=== PATIENT | male | born 1955 | race Caucasian/White ===

== ENCOUNTER → 2018-04-09 14:11 | Outpatient (CLI) | payer SELFPAY | END | disposition home or self-care (01) | LOC: D.LABREF 14:11 | DX: M17.12 Unilateral primary osteoarthritis, left knee (principal); Z11.8 Encounter for screening for other infectious and parasitic diseases ==

== ENCOUNTER 2018-04-15 11:22 | Inpatient (IN) | payer OTHER ==
[~2018-04-15] VITALS: Ht 180.3 cm; Wt 106.4 kg
[2018-04-23] MEDS ORDERED: MOTRIN600 MG PO (16:34)
[2018-04-23] MEDS ORDERED: TYLENOL #4 W/CO1 TAB PO (16:35)
[2018-04-23] MEDS ORDERED: DIOVAN160 MG PO (16:35)
[2018-04-23] MEDS ORDERED: LIPITOR20 MG PO (16:36)
[2018-04-23] MEDS ORDERED: BAYER CHEWABLE81 MG PO (16:36)
[2018-04-23] MEDS ORDERED: OSTEO BI-FLEX1 EAC1 PO (16:47)
[2018-04-24] MEDS ORDERED: TIROSINT50 MCG PO (10:50)
[2018-04-24 11:53] LABS: BASOPHILS 0.2 % (0-2); EOSINOPHILS 1.5 % (0-7); HEMATOCRIT 43.4 % (42.0-54.0); HEMOGLOBIN 14.6 g/dL (13.5-17.5); IMMATURE GRANULOCYTES 1.2 % (0-5); LYMPHOCYTES 21.9 % (15-50); MCH 31.5 pg (26.0-34.0); MCHC 33.6 g/dL (31.0-37.0); MCV 93.7 fL (80.0-100.0); MEAN PLATELET VOLUME 10.5 fL (7.4-10.4); NEUTROPHILS 68.2 % (40-80); PLATELET COUNT 161 10x3/uL (130-400); RBC 4.63 10x6/uL (4.20-6.10); RDW 13.3 % (11.5-14.5); WBC 8.3 10x3/uL (4.8-10.8)
[2018-04-24 12:00] LABS: CALC OSMOLALITY 280 mosm/kg (275-300); CALCIUM 8.9 mg/dL (8.5-10.1); CHLORIDE - SERUM 103 mmol/L (98-107); CREATININE - SERUM 0.7 mg/dL (0.6-1.3); GLUCOSE 111 mg/dL (74-106); POTASSIUM - SERUM 4.2 mmol/L (3.5-5.1); SODIUM 140 mmol/L (136-145); UREA NITROGEN 16 mg/dL (7-18); eGFR NON AFRICAN AMERICAN > 90 mL/min (90-120)
[2018-04-24 12:05] LABS: APTT 26.7 SECONDS (22.8-39.4); INR 0.96 (0.85-1.17); PROTIME 12.3 SECONDS (11.6-15.0)
[2018-04-24 12:22] LABS: APPEARANCE HAZY (CLEAR); BILIRUBIN NEGATIVE (NEGATIVE); COLOR YELLOW (YELLOW); GLUCOSE NEGATIVE (NEGATIVE); KETONE NEGATIVE (NEGATIVE); NITRITE NEGATIVE (NEGATIVE); PROTEIN NEGATIVE (NEGATIVE); SPECIFIC GRAVITY 1.015 (1.005-1.020); UROBILINOGEN NORMAL (NORMAL)
[2018-04-24 12:23] LABS: BACTERIA FEW /hpf (NONE SEEN); EPITHELIAL CELLS OCC /hpf (0-5); RED CELLS - URINE 0-5 /hpf (0-5)
[2018-04-29 08:47] VITALS: BP 140/82; BMI 32.9
--- NOTE | 2018-04-29 10:48 | NUR ---
PLASMA BLADE SET 6/8 BOVIE PAD RIGHT THIGH [id number] EXP 08/10/2019
--- NOTE | 2018-04-29 12:34 | NUR ---
1225 - PT READY FOR D/C. SWITCHING TO PHASE II PROTOCOL.
[2018-04-29 18:42] VITALS: BP 141/92; Ht 180.3 cm; Wt 106.4 kg
[2018-04-29 20:00] VITALS: BP 131/75
[2018-04-30] MEDS ORDERED: TUMS X-STR300 MG PO (03:03)
[2018-04-30 04:00] VITALS: BP 114/63
--- NOTE | 2018-04-30 04:53 | NUR ---
I have reviewed this patient and I concur with the Shift Assessment completed by the Licensed Practical Nurse today this shift.
[2018-04-30 06:57] LABS: HEMOGLOBIN 12.8 g/dL (13.5-17.5); MCH 31.1 pg (26.0-34.0); MCHC 32.8 g/dL (31.0-37.0); MCV 94.7 fL (80.0-100.0); MEAN PLATELET VOLUME 10.8 fL (7.4-10.4); RBC 4.12 10x6/uL (4.20-6.10); RDW 13.9 % (11.5-14.5); WBC 14.1 10x3/uL (4.8-10.8)
--- NOTE | 2018-04-30 08:00 | NUR ---
PT AAOX4 RESP EVEN AND NONLABROED, CMP ON AT THIS TIME CL IN REACH NO SIGNS OF DISTRESS NOTED, WILL CONTINUE TO MONITOR
[2018-04-30 09:06] VITALS: BP 125/76
--- NOTE | 2018-04-30 12:46 | MORECARE ---
CASE MANAGEMENT DISCHARGE SUMMARY PATIENT: ALVARADO RICO UNIT: [id number] ADM DATE: 04/29/18 AGE: 62 : 57 SEX: M ROOM/BED: D.2236 AUTHOR: ADRIENNE PEREIRA PHYSICIAN: REFERRING PHYSICIAN: JOANN COSME MD DATE OF SERVICE: 04/30/18 Discharge Plan Patient Name: ALVARADO RICO [facility] [facility] 1955 Planned Disposition: Home Anticipated Discharge Date: Discharge Date: Expected LOS: Initial Reviewer: [email or web address] Initial Review Date: 04/30/2018 Generated: 04/30/18 1:46 pm External Providers External Provider: OTHER-OTHER Next Contact Date: Service Request Date: Service Type: Resolution: Reviewer: Comments: Patient Name: ALVARADO RICO Page 10110 at 1246 All edits/amendments must be made on the electronic document DICTATION DATE: 04/30/18 1245 MUD ANALYSIS SUPERVISOR: CLAUDE 04/30/18 1245 RPT#: [id number] DC DATE: STATUS: ADM IN [facility] [address] [place] [address] END OF REPORT
--- NOTE | 2018-04-30 13:14 | MORECARE ---
CASE MANAGEMENT DISCHARGE SUMMARY PATIENT: ALVARADO CONLEY UNIT: [id number] ADM DATE: 04/29/18 AGE: 62 : 57 SEX: M ROOM/BED: D.2236 AUTHOR: ADRIENNE PEREIRA PHYSICIAN: REFERRING PHYSICIAN: JOANN COSME MD DATE OF SERVICE: 04/30/18 Discharge Plan Patient Name: ALVARADO CONLEY [facility] [facility] 1955 Planned Disposition: Home Anticipated Discharge Date: Discharge Date: Expected LOS: Initial Reviewer: [email or web address] Initial Review Date: 04/30/2018 Generated: 04/30/18 2:14 pm DCPIA - Discharge Planning Initial Assessment Updated by [email or web address]: Basia Pradhan on 04/30/18 1:11 pm * Is the patient Alert and Oriented? Yes * How many steps to enter\exit or inside your home? 2/0 * PCP Dr. Hemphill * Pharmacy [facility] * Preadmission Environment Home with Family * ADLs Independent * Equipment Other * Other Equipment Rollator walker * List name and contact numbers for known caregivers / representatives who currently or will assist patient after discharge: Lacie Conley - [phone] * Verbal permission to speak to the caregivers and representatives has been obtained from the patient. Yes * Community resources currently utilized Other * Please name any agencies selected above. Outpatient PT at [facility] * Additional services required to return to the preadmission environment? Yes * Can the patient safely return to the preadmission environment? Yes * Has this patient been hospitalized within the prior 30 days at any hospital? No Last DP export: 04/30/18 11:46 a Patient Name: ALVARADO CONLEY Page 31692 at 1314 All edits/amendments must be made on the electronic document DICTATION DATE: 04/30/181313 INSURANCE CONSULTANT: CLAUDE 04/30/181313 RPT#: [id number] DC DATE: STATUS: ADM IN [facility] [address] [place] [address] END OF REPORT
--- NOTE | 2018-04-30 13:22 | MORECARE ---
CASE MANAGEMENT DISCHARGE SUMMARY PATIENT: FAUSTO CONLEY UNIT: [id number] ADM DATE: 04/29/18 AGE: 62 : 57 SEX: M ROOM/BED: D.2236 AUTHOR: KELLIDOC PHYSICIAN: REFERRING PHYSICIAN: JOANN COSME MD DATE OF SERVICE: 04/30/18 Discharge Plan Patient Name: FAUSTO CONLEY Facility: [facility]:[place] : 1955 Planned Disposition: Home Anticipated Discharge Date: Discharge Date: Expected LOS: Initial Reviewer: [email or web address] Initial Review Date: 04/30/2018 Generated: 04/30/18 2:21 pm Comments DCP- Discharge Planning Updated by [email or web address]: Basia Pradhan on 04/30/18 12:[address] Patient Name: FAUSTO CONLEY Admission Status: Elective Accout number: [id number] Admission Date: 04-29-2018 : 1955 Admission Diagnosis: Attending: JOANN COSME Current LOS: 1 Anticipated DC Date: Planned Disposition: Home Primary Insurance: [facility] Discharge Planning Comments: CM met with patient to discuss discharge planning/needs, he is alone in the room. States he lives with his . States he is independent with all ADL's and AIDL's. States his will drive him home on discharge and to his outpatient PT appointments. States he will use [facility] for outpt PT. States he has already been going there. I called [facility] and they are unable to help him with DME, they do not have CPM machines. I called [employer] and spoke to Fausto, he already has the order for DME from Dr. Cosme's office. He states he will call the patient and deliver it to his home. He does have a 2 wheeled walker that he borrowed that he will use to get home. I called [facility] and spoke to Bessie. Bessie states they will call him with the appointment date and time. Order and clinical faxed to them. CM will continue to follow and assist with discharge planning/needs. Crisis Worker: Basia Pradhan DCPIA - Discharge Planning Initial Assessment Updated by [id number]: Basia Pradhan on 04/30/18 1:11 pm * Is the patient Alert and Oriented? Yes * How many steps to enter\exit or inside your home? 2/0 * PCP Dr. Hemphill * [place]acy [facility] [address] [place] * Preadmission Environment Home with Family * ADLs Independent * Equipment Other * Other Equipment Rollator walker * List name and contact numbers for known caregivers / representatives who currently or will assist patient after discharge: Lacie Conley - [phone] * Verbal permission to speak to the caregivers and representatives has been obtained from the patient. Yes * Community resources currently utilized Other * Please name any agencies selected above. Outpatient PT at [facility] * Additional services required to return to the preadmission environment? Yes * Can the patient safely return to the preadmission environment? Yes * Has this patient been hospitalized within the prior 30 days at any hospital? No Last DP export: 04/30/18 12:14 p Patient Name: FAUSTO CONLEY Page 02781 at 1322 All edits/amendments must be made on the electronic document DICTATION DATE: 04/30/18 1321 COP: CLAUDE 04/30/18 1321 RPT#: [id number] DC DATE: STATUS: ADM IN [facility] [address] [place] [address] END OF REPORT
--- NOTE | 2018-04-30 13:35 | OP ---
PATIENT NAME: ALVARADO RICO MEDICAL RECORD: [id number] :57 LOCATION:D.MS [id number] ADMISSION DATE:04/29/18 SURGEON: JOANN COSME MD DATE OF OPERATION: 04/29/2018 PREOPERATIVE DIAGNOSIS: Severe degenerative arthritis, left knee. POSTOPERATIVE DIAGNOSIS: Severe degenerative arthritis, left knee. PROCEDURE: Left total knee arthroplasty. SURGEON: Joann Cosme MD SKOOG OPERATOR: Russell Pastrana APN INTRAOPERATIVE COMPLICATIONS: None. SUMMARY OF PATHOLOGIC FINDINGS: Severe osteoarthritis of the left knee consistent with preoperative radiographs. IMPLANTS USED: Quincy triathlon total knee arthroplasty, size 6 press fit distal femur, size 6 press fit tibial baseplate, size 9 polyethylene insert, size 31 Tritanium patella press fit. OPERATIVE SUMMARY IN DETAIL: After obtaining the appropriate preoperative orthopedic surgery consent as well as anesthetic consultation, evaluation and clearance, the patient was brought to the operating room and placed on the operating table in supine position. After general laryngeal mask airway was administered, tourniquet was placed on the proximal aspect of the left lower extremity. Left lower extremity was prepped and draped in routine sterile fashion. The leg was elevated and exsanguinated and tourniquet was inflated to 350 mmHg. Routine midline incision was taken down for paramedian arthrotomy. Patella was everted, distal femur was exposed. Soft tissue excision was done in the usual fashion. An intramedullary guide hole was created for distal intramedullary guided cut. This was followed by complete exposure of the proximal tibia, where likewise an intramedullary guide hole was created for intramedullary guided proximal tibial cut. Appropriate measurements were taken. Distal chamfer cuts were made. Trials corresponding to the above final trials put in place, taken through range of motion and found to be stable in all planes. Final distal femoral and proximal tibial preparations were made. Having completed this, the arthritic surface of the patella was excised in preparation for press fit 31 Tritanium patella. Pulsatile lavage irrigation was then followed by cleansing the bone ends. Final components were press fit into place. The knee was taken through range of motion and found to be stable in all planes with excellent patellar tracking. Having completed this, a gram of vancomycin and a gram of tobramycin powder each was placed in the knee. Paramedian arthrotomy was closed with #2 Ethibond by Russell Pastrana followed by skin closure with #1 Vicryl, 2-0 Vicryl, and skin gilmar also by Russell Pastrana. Having completed this, sterile dressings were applied. Tourniquet was deflated. The patient was awakened and taken to recovery room in stable condition. All final needle and sponge counts were correct. TRANSINT:[id number] Voice Confirmation ID: [id number] DOCUMENT ID: [id number] OPERATIVE REPORT [id number] ALVARADO RICO MD, JOANN WOMACK at 1335 CC: [id number] DICTATION DATE: 04/29/18 1121 PASTA PRESS OPERATOR: 04/29/18 1224 ADM IN [facility] [address] [place] [id number]
[2018-04-30 15:12] VITALS: BP 128/71
[2018-04-30 17:36] VITALS: BP 140/75
[2018-04-30 20:00] VITALS: BP 118/68
--- NOTE | 2018-05-01 02:04 | NUR ---
PT HAD PCT AT 2311 EFFECTIVE, CPM MACHINE REMOVED AT 2100, NO OTHER NEEDS NOTED, IV ATB FINISHED NO ADVERSE REACTIONS NOTED, FLUIDS AND CALL LIGHT WITHIN REACH
[2018-05-01 04:00] VITALS: BP 110/60
--- NOTE | 2018-05-01 05:19 | NUR ---
PCT REQUESTED AND GIVEN, FLUIDS AND CALL LIGHT WITHIN REACH
[2018-05-01 06:14] LABS: HEMATOCRIT 34.6 % (42.0-54.0); HEMOGLOBIN 11.4 g/dL (13.5-17.5); MCH 31.1 pg (26.0-34.0); MCHC 32.9 g/dL (31.0-37.0); MCV 94.3 fL (80.0-100.0); MEAN PLATELET VOLUME 10.9 fL (7.4-10.4); RBC 3.67 10x6/uL (4.20-6.10); RDW 14.2 % (11.5-14.5); WBC 14.2 10x3/uL (4.8-10.8)
--- NOTE | 2018-05-01 07:07 | NUR ---
PT IS RESTING IN BED WITH EYES OPEN. RESPIRATIONS ARE EVEN AND UNLABORED. CPM MACHINE IS ON LEFT LOWER EXTREMITY. PT DENIES PRESENCE OF PAIN AT THIS TIME. DRESSING TO LEFT LOWER EXTREMITY IS C/D/I. SCD IS ON RIGHT LOWER EXTREMITY AND PLEXI PULSE IS ON LEFT FOOT. PT DENIES PRESENCE OF N/V. BED IS IN THE LOWEST POSITION. CALL LIGHT AND BEDSIDE TABLE ARE WITHIN REACH. WILL CONT TO MONITOR.
[2018-05-01 08:25] VITALS: BP 119/65
[2018-05-01 09:43] VITALS: BP 115/63
[2018-05-01 12:35] VITALS: BP 135/64
[2018-05-01 16:28] VITALS: BP 133/66
--- NOTE | 2018-05-01 21:40 | NUR ---
REMOVED FROM CPM, PT REPORTS PAIN 08/28. DENIES FURTHER NEEDS.
[2018-05-01 22:39] VITALS: BP 124/54
[2018-05-02 04:52] VITALS: BP 112/58
--- NOTE | 2018-05-02 07:05 | NUR ---
PT IS RESTING IN BED WITH EYES OPEN. CPM MACHINE IS ON AND RUNNING. PT DENIES PRESENCE OF PAIN AT THIS TIME. DRESSING TO LEFT LOWER EXTREMITY IS C/D/I. BED IS IN THE LOWEST POSITION. CALL LIGHT AND BEDSIDE TABLE ARE WITHINR EACH. WALKER IS WITHIN REACH. PT DENIES FURTHER NEEDS AT THIS TIME. WILL CONT TO MONITOR.
[2018-05-02] MEDS ORDERED: PERCOCET 10-321 EAC1 PO (07:50)
[2018-05-02] MEDS ORDERED: ELIQUIS2.5 MG PO (07:50)
--- NOTE | 2018-05-02 07:57 | NUR ---
I have reviewed this patient and I concur with the Shift Assessment completed by the Licensed Practical Nurse today this shift.
--- NOTE | 2018-05-02 09:02 | MORECARE ---
CASE MANAGEMENT DISCHARGE SUMMARY PATIENT: FAUSTO CONLEY UNIT: [id number] ADM DATE: 04/29/18 AGE: 62 : 57 SEX: M ROOM/BED: D.2236 AUTHOR: ADRIENNE PEREIRA PHYSICIAN: REFERRING PHYSICIAN: JOANN COSME MD DATE OF SERVICE: 05/02/18 Discharge Plan Patient Name: FAUSTO CONLEY Facility: [facility]:[place] : 1955 Planned Disposition: Home Anticipated Discharge Date: Discharge Date: Expected LOS: Initial Reviewer: [email or web address] Initial Review Date: 04/30/2018 Generated: 05/02/18 10:02 am Comments DCP- Discharge Planning Updated by [email or web address]: Basia Pradhan on 05/02/18 7:[address] Received order for discharge. He states his will be here at 11:00 to pick him up. He states that Luther from [employer] has called and arranged with his when to deliver the equipment. He does have a walker to go home with. He states that [facility] has set up outpatient PT with his . He denies other needs at this time. CM will continue to follow and assist with discharge planning. Home today with outpatient PT. DCP- Discharge Planning Updated by [id number]: Basia Pradhan on 04/30/18 12:[address] Patient Name: FAUSTO CONLEY Admission Status: Elective Accout number: [id number] Admission Date: 04-29-2018 : 1955 Admission Diagnosis: Attending: JOANN COSME Current LOS: 1 Anticipated DC Date: Planned Disposition: Home Primary Insurance: [facility] Discharge Planning Comments: CM met with patient to discuss discharge planning/needs, he is alone in the room. States he lives with his . States he is independent with all ADL's and AIDL's. States his will drive him home on discharge and to his outpatient PT appointments. States he will use [facility] for outpt PT. States he has already been going there. I called [facility] and they are unable to help him with DME, they do not have CPM machines. I called [employer] and spoke to Fausto, he already has the order for DME from Dr. Cosme's office. He states he will call the patient and deliver it to his home. He does have a 2 wheeled walker that he borrowed that he will use to get home. I called [facility] and spoke to Bessie. Bessie states they will call him with the appointment date and time. Order and clinical faxed to them. CM will continue to follow and assist with discharge planning/needs. Heat Treater: Basia Pradhan DCPIA - Discharge Planning Initial Assessment Updated by [id number]: Basia Pradhan on 04/30/18 1:11 pm * Is the patient Alert and Oriented? Yes * How many steps to enter\exit or inside your home? 2/0 * PCP Dr. Hemphill * Pharmacy [facility] [address] [place] * Preadmission Environment Home with Family * ADLs Independent * Equipment Other * Other Equipment Rollator walker * List name and contact numbers for known caregivers / representatives who currently or will assist patient after discharge: Lacie Conley - [phone] * Verbal permission to speak to the caregivers and representatives has been obtained from the patient. Yes * Community resources currently utilized Other * Please name any agencies selected above. Outpatient PT at [facility] * Additional services required to return to the preadmission environment? Yes * Can the patient safely return to the preadmission environment? Yes * Has this patient been hospitalized within the prior 30 days at any hospital? No Last DP export: 04/30/18 12:21 p Patient Name: FAUSTO CONLEY Page 85320 at 0902 All edits/amendments must be made on the electronic document DICTATION DATE: 05/02/18900 PRODUCT LEAD: CLAUDE 05/02/18900 RPT#: [id number] DC DATE: STATUS: ADM IN [facility] [address] [place] [address] END OF REPORT
[2018-05-02 09:25] VITALS: BP 114/41
--- NOTE | 2018-05-02 10:50 | NUR ---
DISCHARGE INSTRUCTIONS COVERED WITH PT. ALL QUESTIONS ANSWERED. DISCHARGE PAPERS SIGNED BY PT. PRINTED RX FOR PERCOCET AND ELIQUIS GIVEN TO PT. PT DENIES FURTHER QUESTIONS/CONCERNS. (5) MEPILEX AG DRESSINGS GIVEN TO PT PER ORDER. LEFT HAND PIV REMOVED WITH CATHETER TIP INTACT. DRESSING APPLIED. BED IS IN THE LOWEST POSITION. CALL LIGHT AND BEDSIDE TABLE ARE WITHIN REACH. PT TO NOTIFY NURSE WHEN TRANSPORTATION ARRIVES. WILL CONT TO MONITOR.
--- NOTE | 2018-05-02 12:11 | NUR ---
PT TRANSPORTED TO VEHICLE FROM ROOM VIA WHEELCHAIR. PT STATES THAT HE DOES HAVE PRINTED RX AND ALL BELONGINGS ON HIS PERSON. PT DENIES FURTHER QUESTIONS/CONCERNS AT THIS TIME.
== END 2018-05-02 12:15 | disposition home or self-care (01) | DRG 470 ==
LOC: D.SDCHOLD 04-29 08:15 → D.MS 04-29 08:15 → D.SDCHOLD 04-29 10:00 → D.MS 04-29 11:46 → D.SDCHOLD 04-29 13:00 → D.MS 04-29 19:35
PROVIDERS: ADMIT Orthopaedic Surgery; ATTEND Orthopaedic Surgery
PROC: 0SRD0JZ Replacement of Left Knee Joint with Synthetic Substitute, Open Approach (ICD-10-PCS; principal; 2018-04-29 10:15)
DX: M17.12 Unilateral primary osteoarthritis, left knee (principal); I10 Essential (primary) hypertension; E78.5 Hyperlipidemia, unspecified

== ENCOUNTER → 2018-04-25 17:41 | Outpatient (CLI) | payer OTHER ==
[~2018-04-25 17:41] MED LIST: BAYER CHEWABLE81 MG PO; DIOVAN160 MG PO; LIPITOR20 MG PO; MOTRIN600 MG PO; OSTEO BI-FLEX1 EAC1 PO; TIROSINT50 MCG PO; TUMS X-STR300 MG PO; TYLENOL #4 W/CO1 TAB PO
--- NOTE | 2018-04-25 18:03 | NUR ---
PATIENT SHOWED UP TO OUR DEPT AN OUTPATIENT, NO ORDERS WERE SUBMITTED IN [facility]. CALLED ORDERING PHYSICIAN TO FIGURE OUT WHAT TYPE OF SCAN THE PATIENT NEEDED. DR. JOANN COSME GAVE ME A VERBAL ORDER TO DO A CT CHEST WITHOUT CONTRAST FOR AN ABNORMAL CHEST XRAY @ 1750.
== END | disposition home or self-care (01) ==
LOC: D.CT 17:41
PROVIDERS: ATTEND Orthopaedic Surgery
DX: J84.9 Interstitial pulmonary disease, unspecified (principal)

== ENCOUNTER → 2018-05-13 10:57 | Outpatient (CLI) | payer OTHER ==
[2018-04-29 18:42] VITALS: BMI 32.7
[~2018-05-13 10:57] MED LIST changes: +ELIQUIS2.5 MG PO; +PERCOCET 10-321 EAC1 PO
== END | disposition home or self-care (01) ==
LOC: D.US 10:57
PROVIDERS: ATTEND Clinical Nurse Specialist Family Health
DX: R60.0 Localized edema (principal)